=== PATIENT | female | born 1990 | race African-American/Black ===

== ENCOUNTER 2019-12-18 10:50 | Emergency (ER) | payer OTHER ==
[~2019-12-18] VITALS: Ht 172.7 cm; Wt 114.3 kg
[~2019-12-18 10:50] MED LIST: ANAPROX DS PO; ANTIBIOTIC; APAP500 PO; AUGMENTIN 875875 M1 PO; COLACE 100 MG100 MG PO; HYDROCODON-ACE1 EAC5 PO; HYDROCORTISONE30 G9 RE; IBUPROFEN 800800 M1 PO; IROSPAN 24/6 T1 EACH PO; LANOLIN56 GM; MEDROL DOSPAK21 TAB PO; MILK OF MA2400 MG/10 PO; NOHOMEMEDICATIONS; PREDNISONE 20 M20 M1 PO; PRENATAL PO; PROVENTIL HFA6.7 G1 INH; TUCKS TOP; ULTRAM 50MG TAB50 MG PO; VENTOLIN HFA 1818 GM INH; VISTARIL50 MG PO; ZPAK PO
[2019-12-18 10:55] VITALS: BP 129/84
[2019-12-18] MEDS ORDERED: DORYX MPC120 MG PO (11:30)
[2019-12-18] MEDS ORDERED: PROAIR HFA8.5 GM INH (11:30)
[2019-12-18] MEDS ORDERED: PREDNISONE 20 M20 MG PO (11:30)
== END 2019-12-18 11:50 | disposition home or self-care (01) ==
LOC: ER 10:50
DX: J18.9 Pneumonia, unspecified organism (principal); Z88.6 Allergy status to analgesic agent

== ENCOUNTER 2020-01-25 10:57 | Emergency (ER) | payer OTHER ==
[~2020-01-25] VITALS: Ht 170.2 cm; Wt 97.5 kg
[~2020-01-25 10:57] MED LIST changes: +DORYX MPC120 MG PO; +PREDNISONE 20 M20 MG PO; +PROAIR HFA8.5 GM INH
[2020-01-25] MEDS ORDERED: PROAIR HFA8.5 GM INH (12:36)
[2020-01-25] MEDS ORDERED: TESSALON PERLE100 MG PO (12:36)
[2020-01-25] MEDS ORDERED: LEVAQUIN 500 M500 M2 PO (12:36)
[2020-01-25 13:13] VITALS: BP 126/97
== END 2020-01-25 13:13 | disposition home or self-care (01) ==
LOC: ER 10:57
DX: J18.9 Pneumonia, unspecified organism (principal); F17.200 Nicotine dependence, unspecified, uncomplicated; Z88.8 Allergy status to other drugs, medicaments and biological substances